=== PATIENT | female | born 1965 | race Hispanic/Latino ===

== ENCOUNTER 2016-12-16 12:55 | Outpatient (CLI) | payer MEDICARE ==
--- NOTE | 2016-12-16 14:46 | Mammography Report ---
BILATERAL DIGITAL SCREENING MAMMOGRAM with CAD: 12/16/16 12:55:00 CLINICAL: Routine screening.Status post left benign biopsy 11/27/11. COMPARISON:12/14/15 FINDINGS: The breasts are almost entirely fatty.Stable left upper outer partially circumscribed mass with a localizer clip. No new mass, architectural distortion or suspicious calcifications. IMPRESSION: No mammographic evidence of malignancy. BI-RADS CATEGORY: 2 -- Benign RECOMMENDATION: Routine mammographic screening in one year. COMMENT: Patient follow-up letters are generated by our [employer] application.
== END 2016-12-16 12:56 | disposition home or self-care (01) ==
LOC: SPVWC 12:55
PROVIDERS: ATTEND Radiology Radiation Oncology
DX: Z12.31 Encounter for screening mammogram for malignant neoplasm of breast (principal)
CPT/HCPCS: 77067; G0202

== ENCOUNTER 2017-01-07 09:29 | Day surgery (SDC) | payer MEDICARE ==
[2017-01-07 10:22] LABS: INR 0.95 (0.87-1.13)
[2017-01-07 10:23] LABS: Partial Thromboplastin Time 27.8 Sec. (24.2-36.6)
[2017-01-07] MEDS ORDERED: XYLOCAINE 1% 20 mL ONE (10:47)
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
[2017-01-07 13:01] LABS: Glucose,CSF 64 mg/dL
[2017-01-07 13:24] LABS: Appearance,CSF Hazy; White Blood Cell,CSF 1 /mm3 (1-10)
[2017-01-07 13:45] VITALS: BP 112/64
[2017-01-07 13:54] LABS: Basophils CSF 0 %; CSF Diff Status Complete
== END 2017-01-07 13:50 | disposition home or self-care (01) ==
LOC: OPU 09:29 → EDSTATUS 09:30 → OPU 13:50
PROVIDERS: ATTEND Specialist
DX: R51 Headache (principal); E66.01 Morbid (severe) obesity due to excess calories; Z68.42 Body mass index [BMI] 45.0-49.9, adult; Z85.42 Personal history of malignant neoplasm of other parts of uterus; Z95.0 Presence of cardiac pacemaker; Z86.79 Personal history of other diseases of the circulatory system; Z79.899 Other long term (current) drug therapy
CPT/HCPCS: 36415; 62270; 77003; 82947; 84160; 85610; 85730; 87116; 89051

== ENCOUNTER 2017-12-17 14:09 | Outpatient (CLI) | payer MEDICARE ==
--- NOTE | 2017-12-18 16:00 | Mammography Report ---
BILATERAL DIGITAL SCREENING MAMMOGRAM with CAD: 12/17/17 14:09:00 CLINICAL: Routine screening. COMPARISON:12/16/16 FINDINGS: The breasts are almost entirely fatty.Stable left upper outer partially circumscribed mass with a biopsy clip. No new mass, architectural distortion or suspicious calcifications. IMPRESSION: No mammographic evidence of malignancy. BI-RADS CATEGORY: 2 -- Benign RECOMMENDATION: Routine mammographic screening in one year. COMMENT: Patient follow-up letters are generated by our [employer] application.
== END 2017-12-17 14:10 | disposition home or self-care (01) ==
LOC: SPVWC 14:09
PROVIDERS: ATTEND Internal Medicine
DX: Z12.31 Encounter for screening mammogram for malignant neoplasm of breast (principal)
CPT/HCPCS: 77067

== ENCOUNTER 2018-02-01 09:11 | Day surgery (SDC) | payer MEDICARE ==
[2018-02-01] MEDS ORDERED: NACL 0.9% 1000 ML 1,000 ML IV SCH (10:00)
[2018-02-01] MEDS ORDERED: DIPRIVAN 10 MG/ML IV ONE ×3 (10:16→10:38)
--- NOTE | 2018-02-01 10:23 | Short Stay Summary ---
Short Stay Documentation Date of service: 02/01/18 Narrative H&P: 52 year old presents for colonoscopy for evaluation of hematochezia. History includes cervical cancer for which she underwent radiation therapy. She also has a history of colon polyp(s). - History Principal diagnosis: hematochezia Past Medical History: arrhythmia, arthritis, cancer (cervical), COPD (asthma), heart failure, hypertension, hyperlipidemia, other (colon polyp, obesity) Past Surgical History: , hysterectomy, tonsillectomy, Other (pacemaker) - Allergies and Medications Current Medications: Allergies celecoxib [From Celebrex] Adverse Reaction (Severe, Verified 08/25/16 16:28) Palpitation duloxetine HCl [From Cymbalta] Adverse Reaction (Severe, Verified 08/25/16 16:28 ) Palpitations ibuprofen Adverse Reaction (Severe, Verified 08/25/16 16:28) Hives nortriptyline Adverse Reaction (Severe, Verified 08/25/16 16:28) Hives paroxetine HCl [From Paxil] Adverse Reaction (Verified 08/25/16 16:28) Hives Home Medications Medication Instructions Recorded Confirmed Last Taken Type Albuterol Sulfate [Ventolin HFA] 8 gm INHALATION PRN PRN 08/10/15 02/01/1801/31 History Atenolol 50 mg PO DAILY 08/10/15 02/01/18 02/01/18 History AtorvaSTATin [Lipitor] 80 mg PO QHS 08/10/15 02/01/18 01/31/18 History Furosemide 40 mg PO BID 08/10/15 02/01/18 01/31/18 History LORazepam 1 mg PO DAILY PRN 08/10/15 02/01/18 01/31/18 History Oxycodone HCl/Acetaminophen 15 mg PO QID PRN 08/10/15 02/01/18 01/31/18 History [OxyCODONE-Acetaminophen 10-325] acetaZOLAMIDE [Acetazolamide] 250 mg PO BID 08/10/15 02/01/18 01/31/18 History Potassium Chloride [Klor-Con 10 meq PO DAILY 12/04/15 02/01/18 01/30/18 History Sprinkle] Topiramate [Topamax] 200 mg PO BID 12/04/15 02/01/18 01/31/18 History Escitalopram [Lexapro] 10 mg PO DAILY 08/25/16 02/01/18 01/31/18 History [place]-3 Acid Ethyl Esters [Lovaza] 1 gm PO BID 08/25/16 02/01/18 01/31/18 History Cyclobenzaprine [Flexeril 10 MG 10 mg PO BID PRN 01/07/17 02/01/18 01/31/18 History TAB] acetaZOLAMIDE [Diamox TAB] 250 mg PO BID 01/07/17 02/01/18 01/31/18 History Lovaza 10 mg PO BID 02/01/18 02/01/18 01/31/18 History Phenergan TAB 25 mg PO PRN PRN 02/01/18 02/01/18 01/25/18 History Active Medications Sodium Chloride (Nacl 0.9% 1000 Ml) 1,000 mls @ 50 mls/hr IV DIRECT SIMONE Last Admin: 02/01/18 10:03 Dose: 50 mls/hr - Physical exam General appearance: no acute distress, well-nourished HEENT: PERRLA, EOMI Lungs: Clear to auscultation Heart: Regular rate, Normal S1, Normal S2 Gastrointestinal: normal, obese Neurological: Normal speech - Hospital course Hospital course: Uneventful colonoscopy. - Disposition Condition at discharge: Good Disposition: DC-01 TO HOME OR SELFCARE - Discharge Diagnoses (1) Hematochezia Status: Acute (2) Internal hemorrhoids Status: Acute (3) Diverticulosis of colon Status: Acute (4) Personal history of colonic polyps Status: Acute Comment: none at this time Short Stay Discharge Plan Activity: other (no driving today) Diet: other (may resume usual diet) Additional Instructions: 1. Repeat colonoscopy in 5 years. 2. First-degree family members (siblings, children) should be informed that polyps run in their family, and that they should begin their colon screening at age 40 rather than age 50. Follow up with: KAYLEIGH MARIE MD [Primary Care Provider] - 7 Days
--- NOTE | 2018-02-01 11:01 | Operative Report ---
Operative Report Operative Report: Date of procedure: 02/01/2018 Preprocedure diagnosis: Hematochezia, history of pelvic radiation rule out post- irradiation vasculopathy, personal history colon polyp Post procedure diagnosis: Diverticulosis and internal hemorrhoids Procedure name(s): Colonoscopy Surgeon: Sridhar Johnson MD Anesthesia: Monitored anesthesia care EBL: None Procedure: The indications, techniques, potential complications and alternatives , had been discussed in full detail prior to the date of the exam, and once again on the day of the exam. Questions were encouraged and answered, and consent was thereby obtained. The patient was placed in the left lateral decubitus position, and was medicated by anesthesia services. See the anesthesia records for details. The anal sphincter was digitally dilated. The digital exam was unremarkable. The tip of a [employer] video colonoscope was inserted through the anal sphincter and into the rectal vault. It was then advanced proximally under continuous visualization of the lumen through a tortuous sigmoid colon but successfully to the cecum. The prep was adequate. Landmarks were identified without difficulty. No pathology was seen in the cecum. The appendiceal orifice and ileocecal valve appeared normal. From the cecum, the instrument was slowly withdrawn with careful circumferential examination of the colonic mucosa. Examination was somewhat hampered by repetitive coughing and concurrent movement of the colon and expulsion of the insufflated air, but the overall mucosal visualization was felt to be adequate. No pathology was seen in the ascending colon, hepatic flexure, transverse colon, splenic flexure or descending colon. Moderate diverticulosis without stigmata of bleeding was noted in the sigmoid colon. No polyps were seen at any point. The rectum appeared normal from the forward view without evidence of post-irradiation vasculopathy. Retroflexion in the rectum revealed only internal hemorrhoids. The instrument was fully withdrawn. The procedure was very well tolerated. Post procedure she was monitored in the recovery area of the GI lab to ensure stability prior to her release. See the outpatient record for details regarding instructions to patient, medications and plans for follow-up. Final diagnosis: 1. Internal hemorrhoids, likely source of bleeding 2. Sigmoid diverticulosis 3. Otherwise normal colonoscopy to the cecum. No polyp recurrence at this time. Sridhar Johnson M.D. Dictated 02/01/2018 at 10:57 AM
[2018-02-01 11:23] VITALS: BP 117/78
--- NOTE | 2018-02-01 14:50 | Anesthesia Day of Surgery ---
Anesthesia Day of Surgery - Day of Surgery Patient Examined: Yes Patient H&P Reviewed: Yes Patient is NPO: Yes Beta Blockers: Yes
--- NOTE | 2018-02-01 14:50 | Anesthesia Consultation ---
Anesthesia Consult and Med Hx Date of service: 02/01/18 - Airway ROM Head & Neck: Adequate Mental/Hyoid Distance: Adequate Mallampati Class: Class III Intubation Access Assessment: Possibly Difficult - Pulmonary Exam CTA: Yes - Cardiac Exam Cardiac Exam: RRR - Pre-Operative Health Status ASA Pre-Surgery Classification: ASA3 Proposed Anesthetic Plan: MAC - Pulmonary Hx Smoking: Yes Hx Asthma: Yes COPD: No Hx Pneumonia: No Hx Sleep Apnea: Yes - Cardiovascular System Hx Hypertension: Yes Hx Heart Attack/AMI: No Hx Cardia Arrhythmia: Yes Hx Pacemaker: Yes Hx Peripheral Vascular Disease: No - Central Nervous System Hx Back Pain: Yes Hx Psychiatric Problems: No - Endocrine Hx End Stage Renal Disease: No - Hematic Hx Anemia: Yes - Other Systems Hx Alcohol Use: Yes (occas) Hx Cancer: Yes Hx Obesity: Yes
--- NOTE | 2018-02-01 14:51 | Post Anesthesia Evaluation ---
- Post Anesthesia Evaluation Patient Participated: Yes Airway Patent: Yes Stable Respiratory Function: Yes Nausea/Vomiting: No Temp > 96.8F: Yes Pain Manageable: Yes Adequeate Hydration: Yes Anesthesia Complications: No
== END 2018-02-01 09:12 | disposition home or self-care (01) ==
LOC: GIO 09:11
PROVIDERS: ATTEND Internal Medicine Gastroenterology
DX: K64.8 Other hemorrhoids (principal); K57.30 Diverticulosis of large intestine without perforation or abscess without bleeding; J44.9 Chronic obstructive pulmonary disease, unspecified; M19.90 Unspecified osteoarthritis, unspecified site; I11.0 Hypertensive heart disease with heart failure; I50.9 Heart failure, unspecified; E66.9 Obesity, unspecified; E78.5 Hyperlipidemia, unspecified; F17.200 Nicotine dependence, unspecified, uncomplicated; Z90.710 Acquired absence of both cervix and uterus; Z95.0 Presence of cardiac pacemaker; Z98.890 Other specified postprocedural states; Z88.8 Allergy status to other drugs, medicaments and biological substances; Z86.010 Personal history of colon polyps; Z92.3 Personal history of irradiation
CPT/HCPCS: 45378; J2704; J7030

== ENCOUNTER 2018-12-24 13:54 | Outpatient (CLI) | payer MEDICARE ==
--- NOTE | 2018-12-24 16:27 | Mammography Report ---
BILATERAL DIGITAL SCREENING MAMMOGRAM with CAD: 12/24/18 13:54:00 CLINICAL: Routine screening. COMPARISON:12/17/17 FINDINGS: The breasts are mostly fatty with bilateral scattered areas of fibroglandular density.A stable left upper-outer mass with the biopsy clip. No new mass, architectural distortion or suspicious calcifications. IMPRESSION: No mammographic evidence of malignancy. BI-RADS CATEGORY: 2 -- Benign RECOMMENDATION: Routine mammographic screening in one year. COMMENT: Patient follow-up letters are generated by our [email or web address] application.
== END 2018-12-24 13:55 | disposition home or self-care (01) ==
LOC: SPVWC 13:54
PROVIDERS: ATTEND Internal Medicine
DX: Z12.31 Encounter for screening mammogram for malignant neoplasm of breast (principal); E66.01 Morbid (severe) obesity due to excess calories; E78.00 Pure hypercholesterolemia, unspecified; I11.0 Hypertensive heart disease with heart failure; I50.9 Heart failure, unspecified; J45.909 Unspecified asthma, uncomplicated; E66.9 Obesity, unspecified; M19.90 Unspecified osteoarthritis, unspecified site; Z90.89 Acquired absence of other organs; Z90.710 Acquired absence of both cervix and uterus; Z87.891 Personal history of nicotine dependence
CPT/HCPCS: 77067

== ENCOUNTER 2019-08-10 10:21 | Outpatient (CLI) | payer MEDICARE ==
--- NOTE | 2019-08-24 08:21 | Mammography Report ---
BONE DEXA CLINICAL: Postmenopausal. COMPARISON: 11/04/2012 TECHNIQUE: 2 site bone DEXA performed on an Hologic scanner. FINDINGS: The average BMD of the lumbar spine L1-L4 is 1.118g/cm squared with a T score of +0.6 and a Z score o f +1.7. This compares to 1.050g/cm squared on the last exam and represents a +6.4 % change from the [ previous baseline]. The average BMD of the left hip is 0.882 g/cm squared with a T score of -0.5and a Z score of +0.2. Th is compares to 0.938 g/cm squared on the last exam and represents a -6.0 % change from the [previous baseline]. IMPRESSION: 1. WHO classification: Normal with average fracture risk based on both spine and left hip measurement s. 2. A moderate improvement in spine BMD and a moderate decline in left hip BMD compared to the last ex am. RECOMMENDATION: Clinical correlation and routine screening. Definitions: BMD equal bone mineral density T score = BMD related to peak bone mass of young adult ([place] expressed an standard deviation) Z score = age-matched BMD expressed in SD World health organization (WHO) diagnostic criteria Normal T score greater than equal to 1 standard deviation Osteopenia T score between -1 and -2.4 standard deviation Osteoporosis T score -2.5 standard deviation or below. Note: BMD is not the only risk factor for fracture; also consider factors such as the patient's age, risk of falling, previous osteoporotic fracture, family history of osteoporotic fractures, current sm oker and low body weight. Z scores are not calculated if greater than 80 years of age. Signer Name: Elkin Hinton MD Signed: 08/24/2019 8:17 AM Workstation Name: [id number]
== END 2019-08-10 10:22 | disposition home or self-care (01) ==
LOC: SPVWC 10:21
PROVIDERS: ATTEND Internal Medicine
DX: Z78.0 Asymptomatic menopausal state (principal); I11.0 Hypertensive heart disease with heart failure; I50.9 Heart failure, unspecified; E78.00 Pure hypercholesterolemia, unspecified; J45.909 Unspecified asthma, uncomplicated; E66.9 Obesity, unspecified; Z90.89 Acquired absence of other organs; Z90.710 Acquired absence of both cervix and uterus
CPT/HCPCS: 77080

== ENCOUNTER 2019-08-24 14:10 | Outpatient (CLI) | payer MEDICARE ==
--- NOTE | 2019-08-24 14:56 | XRay Report ---
CHEST 2 VIEWS INDICATION: CHEST PAIN. COMPARISON: None. FINDINGS: Support devices: None. Heart: Within normal limits. Pacer leads in the heart. Pulmonary vasculature: Normal. Lungs/pleura: Lungs are normally expanded and clear. No pleural effusion. No pneumothorax. Additional findings: Degenerative change in the spine. IMPRESSION: Acute cardiopulmonary process. Signer Name: Elkin Hinton MD Signed: 08/24/2019 2:52 PM Workstation Name: [id number]
== END 2019-08-24 14:11 | disposition home or self-care (01) ==
LOC: SPVIMAG 14:10
PROVIDERS: ATTEND Internal Medicine
DX: R07.9 Chest pain, unspecified (principal); M19.90 Unspecified osteoarthritis, unspecified site; I11.0 Hypertensive heart disease with heart failure; I50.9 Heart failure, unspecified; Z90.710 Acquired absence of both cervix and uterus; F17.200 Nicotine dependence, unspecified, uncomplicated
CPT/HCPCS: 71046

== ENCOUNTER 2021-01-10 11:14 | Outpatient (CLI) | payer MEDICARE ==
--- NOTE | 2021-01-11 12:55 | Mammography Report ---
DIGITAL SCREENING MAMMOGRAM WITH CAD, 01/10/2021 CLINICAL INFORMATION / INDICATION: Routine screening mammography. SCREENING MAMMO TECHNIQUE: Digital bilateral 2D mammography was obtained in the craniocaudal and mediolateral obliqu e projections. This examination was interpreted with the benefit of Computer-Aided Detection analysis . COMPARISON: 12/17/2017 FINDINGS: Breast Density: There are scattered areas of fibroglandular density. No dominant mass, suspicious calcifications, or architectural distortion in either breast. There is a stable nodule with a biopsy marker on the left. IMPRESSION: No mammographic evidence of malignancy. Follow up recommendation: Routine yearly BI-RADS Category 2: Benign. A "normal" or negative report should not discourage follow up or biopsy of a clinically significant f inding. A written summary of these findings will be mailed to the patient. The patient will be entered into a mammography reporting system which will generate a reminder letter for the patient's next appointmen t at the appropriate interval. The [employer] recommends yearly mammograms starting at age 40 and continuing as l xu as a woman is in good health. Breast MRI is recommended for women with an approximate 20-25% or greater lifetime risk of breast cancer, including women with a strong family history of breast or ova tyra cancer or who have been treated for Hodgkin's disease. Signer Name: Nirav Garcia MD Signed: 01/11/2021 12:50 PM Workstation Name: [id number]
== END 2021-01-10 11:15 | disposition home or self-care (01) ==
LOC: SPVWC 11:14
PROVIDERS: ATTEND Internal Medicine
DX: Z12.31 Encounter for screening mammogram for malignant neoplasm of breast (principal)
CPT/HCPCS: 77067